=== PATIENT | female | born 1995 | race Caucasian/White ===

== ENCOUNTER 2017-08-06 15:41 | Emergency (ER) | payer OTHER ==
[~2017-08-06] VITALS: Ht 160 cm; Wt 56.3 kg
[~2017-08-06 15:41] MED LIST: PRENATAL TABLE1 EAC3 PO
[2017-08-06 16:44] LABS: HEMATOCRIT 39.6 % (36.0-46.0); MCH 29.3 PG (29.0-34.0); MCHC 33.8 G/DL (30.0-36.0); MCV 86.7 FL (83-99); MEAN PLAT.VOLUME 10.2 uM^3 (9.5-12.4); PLATELET COUNT 260 K/uL (156-360); RBC DIS.WIDTH-CV 12.5 % (11.8-14.6); RBC DIS.WIDTH-SD 39.6 % (39-53); RED BLOOD COUNT 4.57 M/uL (3.80-5.20); WHITE BLOOD COUNT 8.1 K/uL (4.1-10.2)
[2017-08-06 18:19] LABS: ADD MIUA? YES; BILIRUBIN NEGATIVE; BLOOD LARGE; COLOR YELLOW ((YELLOW)); GLUCOSE (STRIP) NEGATIVE; KETONES NEGATIVE; LEUKOCYTES NEGATIVE; NITRITE NEGATIVE; PROTEIN (STRIP) NEGATIVE; UROBILINOGEN 0.2 MG/DL (0.2-1.0)
[2017-08-06 18:22] LABS: BACTERIA RARE /HPF; EPITHELIAL CELLS RARE /HPF; MUCUS TRACE /LPF; UCUL ADDED? NO; WHITE BLOOD CELLS 0-5 /HPF (0-5)
[2017-08-06 19:24] VITALS: BP 104/68
== END 2017-08-06 19:25 | disposition home or self-care (01) ==
LOC: EME 15:41
DX: N93.9 Abnormal uterine and vaginal bleeding, unspecified (principal)
CPT/HCPCS: 81003; 84702; 85027; 86900; 86901; 99281; 99284

== ENCOUNTER 2018-03-25 19:41 | Emergency (ER) | payer OTHER ==
[~2018-03-25] VITALS: Ht 160 cm; Wt 54.8 kg
[2018-03-25 21:02] VITALS: BP 118/86
== END 2018-03-25 21:02 | disposition home or self-care (01) ==
LOC: EME → EDBD 19:41 → TRA 19:41
DX: S20.219A Contusion of unspecified front wall of thorax, initial encounter (principal); V43.52XA Car driver injured in collision with other type car in traffic accident, initial encounter; Y92.410 Unspecified street and highway as the place of occurrence of the external cause; Z87.891 Personal history of nicotine dependence
CPT/HCPCS: 99281; 99283